=== PATIENT | female | born 1955 | race Caucasian/White ===

== ENCOUNTER 2020-05-01 05:59 | Day surgery (SDC) | payer OTHER ==
[2020-04-25 12:01] LABS: Absolute Lymphocytes (CBC) 1.7 K/uL (0.7-4.9); Basophils % 0.5 % (0-1.3); Hematocrit 44.6 % (36.0-45.0); Lymphocytes % 25.5 % (15.3-44.8); MPV 8.8 fL (7.6-11.3); RBC Red Blood Cell Count 4.97 M/uL (3.86-4.86)
[2020-04-25 12:06] LABS: Protime INR 0.97
[2020-04-25 12:16] LABS: Potassium 3.8 mmol/L (3.5-5.1)
--- NOTE | 2020-04-25 12:30 | RAD REPORT ---
EXAM DESCRIPTION: RAD - Chest Pa And Lat (2 Views) - 04/25/2020 11:47 am CLINICAL HISTORY: PREOP, SAME DAY SURGERY COMPARISON: Two view chest October 2011 TECHNIQUE: Frontal and lateral views of the chest were obtained. FINDINGS: The lungs are clear. Heart size is normal and central vasculature is within normal limit s. No pleural effusion or pneumothorax seen. No acute bony finding noted. No aortic abnormality. IMPRESSION: No acute cardiopulmonary process. No significant change from comparison study.
[2020-05-01] MEDS ORDERED: CEFAZOLIN/SWI 1gm 1 GM/10 ML SYR ONE (06:32)
[2020-05-01] MEDS ORDERED: Ringers Lactate 1,000 ML IV ONE ×2 (06:32→07:16)
[2020-05-01] MEDS ORDERED: dexAMETHasone 10 MG/ML VIAL ONE ×2 (06:50→07:32)
[2020-05-01] MEDS ORDERED: FENTANYL CITR 100 MCG/2 ML ONE (06:50)
[2020-05-01] MEDS ORDERED: NS 0.9% VIAL 10 ML ONE (06:50)
[2020-05-01] MEDS ORDERED: LIDOCAINE 1% MPF 5 ML VIAL ONE (06:50)
[2020-05-01] MEDS ORDERED: MIDAZOLAM HCL 2 MG/2 ML INJ ONE (06:51)
[2020-05-01] MEDS ORDERED: ROPLVACAINE HCL 40 ML ONE (06:51)
[2020-05-01] MEDS ORDERED: EPINEPHRINE/PF 1 MG/ML AMP ONE (07:15)
[2020-05-01] MEDS ORDERED: propofoL 200 MG/20 ML VIAL IV ONE (07:31)
[2020-05-01] MEDS ORDERED: LIDOCAINE 2% MPF 5 ML VIAL ONE (07:32)
[2020-05-01] MEDS ORDERED: ROCURONIUM 50 MG/5 ML VIAL IV ONE (07:32)
[2020-05-01] MEDS ORDERED: ONDANSETRON 4 MG/2 ML VIAL ONE (07:32)
[2020-05-01] MEDS ORDERED: KETOROLAC 30 MG/ML INJ ONE (07:32)
[2020-05-01] MEDS ORDERED: EPHEDRINE SULF 50 MG/ML VIAL ONE (08:46)
[2020-05-01] MEDS ORDERED: GLYCOPYRROLATE 0.2 MG/ML SYR ONE ×2 (09:09→09:21)
[2020-05-01] MEDS ORDERED: NEOSTIGMINE 1 MG/ML -5 ML ONE (09:10)
--- NOTE | 2020-05-01 09:16 | P.BOP ---
Preoperative diagnosis: left shoulder adhesive capsulitis, rotator cuff tear, bicipital tendinitis Postoperative diagnosis: same, left shoulder SLAP tear Primary procedure: left shoulder manipulation under anesthesia Secondary procedure: left shoulder arthroscopic biceps tenotomy with SLAP debridement Other procedure(s): left shoulder arthroscopic rotator cuff debridement and lysis of adhesions Estimated blood loss: 5 cc Specimen: none Findings: see dictation Anesthesia: General Implants: none Fluids & blood products: per anesthesia record Transferred to: Recovery Room Condition: Good
[2020-05-01] MEDS ORDERED: PROMETHAZINE INJ 25 MG/ML AMP ONE (09:46)
--- NOTE | 2020-05-01 10:11 | RAD REPORT ---
EXAM DESCRIPTION: RAD - Shoulder 1 View - 05/01/2020 9:50 am CLINICAL HISTORY: s/p L shoulderMUA, RC debridement, biceps tenotomy COMPARISON: Shoulder Left Wo Cont dated 02/01/2020 FINDINGS: Mild AC joint and glenohumeral joint arthritic changes are present. No fracture dislocatio n seen. No aggressive marrow pattern.
[2020-05-01 12:53] VITALS: BP 113/52; TEMP 97.6; O2SAT 100
--- NOTE | 2020-05-01 18:40 | OP ---
Date of Procedure: 05/01/2020 Surgeon: Isrrael Saeed MD Preoperative Diagnoses: 1.Left shoulder rotator cuff tear. 2.Left shoulder adhesive capsulitis. 3.Left shoulder bicipital tenosynovitis. 4.Left shoulder impingement syndrome. Postoperative Diagnoses: 1.Left shoulder rotator cuff tear. 2.Left shoulder adhesive capsulitis. 3.Left shoulder bicipital tenosynovitis. 4.Left shoulder impingement syndrome. 5.Left shoulder SLAP tear. Procedure Performed: 1.Left shoulder arthroscopic rotator cuff debridement. 2.Left shoulder arthroscopic biceps tenotomy with SLAP tear debridement. 3.Left shoulder manipulation under anesthesia. Anesthesia: General endotracheal. Fluids: Per Anesthesia record. Estimated Blood Loss: 5 cc. Implant: None. Complications: None. Indication For Procedure: Jazmyne is a 65-year-old female who presented to my clinic with signs, symp toms, and MRI findings consistent with a left shoulder rotator cuff tear as well as an adhesive capsu litis. The patient failed conservative treatment measures and had significant pain interfering with her activities of daily living. I discussed with the patient at length risks and benefits associated with operative and nonoperative treatment. She expressed understanding and elected to proceed with operative treatment. Description Of Procedure: After informed consent was obtained, the patient was identified in the pre operative holding area. The left upper extremity was marked. The patient was then taken to PACU whe re she underwent an interscalene block to her left upper extremity performed by anesthesia. She was then taken back to the operating room, transferred to the operating table in supine fashion, placed u nder general endotracheal anesthesia. She was then placed in the beach chair position with her extre mities well padded. Time-out was initiated. Correct patient and procedure were confirmed and identi fied. The patient did receive her preoperative prophylactic antibiotics and manipulation under anest hesia of the left shoulder was started stabilizing the scapula and the left hand. The shoulder was g ently placed in forward flexion at the level of the distal humerus and audible pops and palpable pops were felt as the shoulder was brought up to approximately 140 degrees of forward flexion. Prior to the manipulation, forward flexion was limited to about 120 degrees. Shoulder was then manipulated wi th an abduction and external rotation. Next, the left upper extremity was then prepped and draped in usual sterile fashion. A spinal needle was then introduced through the posterior portal position an d shoulder capsule was injected with 30 cc of normal saline to distend the capsule. A standard poste rior portal was then created and arthroscope was brought in via the posterior portal position. The a nterior portal was then created under direct visualization and a cannula was placed. Diagnostic arth roscopy was performed. Patient had significant synovitis throughout her joint with hyperemia of her tissues and synovium. She had a significant fraying of her superior labrum as well as some elevation of the superior labrum off the glenoid consistent with a SLAP tear. The arthroscopic shaver was the n used to debride the SLAP tear and meniscal biter was then used to perform a biceps tenotomy without complication. With a history of her adhesive capsulitis, a rotator cuff interval was then released using a radiofrequency ablator and arthroscopic shaver. An anterior capsular release was also perfor med using the radiofrequency ablator. There did appear to be some opening of the joint after these r eleases were performed. The patient did have some chondromalacia changes of her glenoid surface as w ell as her humeral head with grade 3 and 4 chondromalacia changes. Next, the subscapularis was found to be intact and stable to probe as well as undersurface of the supraspinatus and infraspinatus and articular surface. The arthroscope was then brought in the subacromial space. A subacromial bursect danette was performed using arthroscopic shaver. A radiofrequency ablator was also used to debride off t he undersurface of the acromion. There was no significant fraying of the coracoacromial ligament and no acromioplasty or decompression was performed. The arthroscopic instruments were then removed wit hout complication. Wounds were then irrigated thoroughly with normal saline. Subcutaneous tissue wa s approximated using a 2-0 Vicryl. Skin was approximated using a 3-0 Monocryl. Sterile dressings we re applied. The patient was placed in a shoulder immobilizer, awakened, and transferred to PACU in s table condition. Postoperative Plan: She will be nonweightbearing of her left upper extremity. Physical therapy was consulted today with mobilization. She will follow up in 1 week for wound check. CV/MODL Voice ID: [id number] Report ID: [id number]
== END 2020-05-01 10:55 | disposition home or self-care (01) ==
LOC: OR 05:59
PROVIDERS: ATTEND Orthopaedic Surgery Sports Medicine
PROC: 0RNKXZZ Release Left Shoulder Joint, External Approach (ICD-10-PCS; 2020-05-01)
PROC: 0RBK4ZZ Excision of Left Shoulder Joint, Percutaneous Endoscopic Approach (ICD-10-PCS; principal; 2020-05-01 07:30)
DX: M75.122 Complete rotator cuff tear or rupture of left shoulder, not specified as traumatic (principal); M75.22 Bicipital tendinitis, left shoulder; M75.02 Adhesive capsulitis of left shoulder; M75.42 Impingement syndrome of left shoulder; I10 Essential (primary) hypertension; E03.9 Hypothyroidism, unspecified; G47.00 Insomnia, unspecified; Z20.822 Contact with and (suspected) exposure to COVID-19
CPT/HCPCS: 85025; 80048; 36415; 85610; 85730; 71046; 73020; 23700; 29822; U0002; J2704; J0171; J2550; J2250; J3010; J1100 ×2; J2795; J2710; J0690; J7120 ×2; J2405